=== PATIENT | female | born 1965 | race Caucasian/White ===

== ENCOUNTER 2018-09-28 13:49 | Emergency (ER) | payer MEDICAID ==
[~2018-09-28] VITALS: Ht 152.4 cm; Wt 84.0 kg
[2018-09-28] MEDS ORDERED: ipratropium/albuterol 3ml nebule NEB ONE (15:25)
[2018-09-28 15:36] VITALS: BP 117/70
--- NOTE | 2018-09-28 15:52 | NUR ---
RT at bedside
[2018-09-28] MEDS ORDERED: dexamethasone sod phosphate 10mg/ml inj PO STA (16:07)
[2018-09-28] MEDS ORDERED: PRED20TA PO (16:09)
== END 2018-09-28 16:31 | disposition home or self-care (01) ==
LOC: ER 13:50
DX: J45.909 Unspecified asthma, uncomplicated (principal); Z79.899 Other long term (current) drug therapy; Z87.891 Personal history of nicotine dependence
CPT/HCPCS: 94640; 94760; 99283; J1100

== ENCOUNTER 2020-06-08 09:30 | Outpatient (CLI) | payer MEDICAID ==
[~2020-06-08] VITALS: Ht 152.4 cm; Wt 81.6 kg
[2020-06-08] MEDS ORDERED: FLUT100B3 PO (10:21)
[2020-06-08] MEDS ORDERED: ALBU8.5H8 INH (10:22)
[2020-06-08] MEDS ORDERED: ALBU2.5V12 NEB (10:23)
[2020-06-08] MEDS ORDERED: IBUP-1984 PO (10:24)
[2020-06-08 11:08] LABS: CLARITY,URINE SLIGHTLY CLOUDY (Clear); COLOR,URINE STRAW (Yellow); GLUCOSE, URINE NEGATIVE (Neg); KETONES,URINE NEGATIVE (Neg); LEUKOCYTE ESTERASE ,URINE NEGATIVE (Neg); NITRITES, URINE NEGATIVE (Neg); OCCULT BLOOD,URINE SMALL (Neg); PROTEIN,URINE NEGATIVE (Neg); UROBILINOGEN,URINE 0.2 E.U/dL (0.2-1.0)
[2020-06-08 11:11] LABS: BASOPHILS # (AUTO) 0.1 X10'3 (0-0.2); BASOPHILS % (AUTO) 0.7 % (0-1); EOSINOPHILS # (AUTO) 0.2 X10'3 (0-0.9); EOSINOPHILS % (AUTO) 1.9 % (0-6); LYMPHOCYTES # (AUTO) 1.4 X10'3 (1.1-4.8); LYMPHOCYTES % (AUTO) 17.2 % (21-51); MEAN CORPUSCULAR HEMOGLOBIN 28.3 PG (27.0-31.0); MEAN CORPUSCULAR HGB CONC 33.1 g/dL (33.0-36.5); MEAN CORPUSCULAR VOLUME 85.7 FL (78-98); MEAN PLATELET VOLUME 9.8 FL (7.4-10.4); MONOCYTES # (AUTO) 0.6 X10'3 (0-0.9); MONOCYTES % (AUTO) 7.5 % (2-12); NEUTROPHILS # (AUTO) 5.9 X10'3 (1.8-7.7); NEUTROPHILS % (AUTO) 72.7 % (42-75); PRE OP HEMATOCRIT 43.9 % (35.0-45.0); PRE OP HEMOGLOBIN 14.5 g/dL (12.0-16.0); PRE OP PLATELET COUNT 261 X10'3 (140-440); RED BLOOD COUNT 5.13 X10'6 (4.20-5.60); RED CELL DISTRIBUTION WIDTH 14.2 % (11.5-14.5)
[2020-06-08 11:13] LABS: SQUAMOUS EPITHELIAL CELL,UR MANY /LPF (FEW); UA COLLECTION TYPE CLN CATCH MIDSTREAM
[2020-06-08 11:14] LABS: MUCUS STRANDS MANY /LPF (Neg)
[2020-06-08 11:16] LABS: BACTERIA,URINE FEW /HPF (Neg); RBC,URINE 0-2 /HPF (0-2); WBC,URINE 0-4 /HPF (0-4)
[2020-06-08 11:22] LABS: HCG SERUM QL NEGATIVE
[2020-06-08 11:26] LABS: ALBUMIN 2.3 G/DL (3.4-5.0); ALBUMIN/GLOBULIN RATIO 0.4 (1.1-1.5); ALKALINE PHOSPHATASE 93 IU/L (46-116); BLOOD UREA NITROGEN 16 MG/DL (7-18); BUN/CREATININE RATIO 21.9 (6.6-38.0); CALCIUM 8.7 MG/DL (8.5-10.1); CHLORIDE 105 MMOL/L (99-107); CREATININE 0.73 MG/DL (0.40-0.90); PRE OP ALT 30 U/L (30-65); PRE OP ANION GAP 9 (8-16); PRE OP AST 19 U/L (10-37); PRE OP BILIRUB, TOTAL 0.3 MG/DL (0.0-1.0); PRE OP GLUCOSE 96 MG/DL (70-104); PRE OP SODIUM 142 MMOL/L (135-145); TOTAL CARBON DIOXIDE 27.9 MMOL/L (24-32); TOTAL PROTEIN 7.7 G/DL (6.4-8.2); eGFR 84 ML/MIN
[2020-06-08 11:28] LABS: PRE OP INR < 0.9 INR; PRE OP PARTIAL THROMB. TIME 28 SECONDS (22-32); PRE OP PROTIME 9.6 SECONDS (9.0-12.0)
[2020-06-15] MEDS ORDERED: ringers solution, lacted 1,000 ML IV SCH (05:00)
[2020-06-15] MEDS ORDERED: albuterol 2.5 MG/3 ML nebule NEB ONE (05:30)
[2020-06-15] MEDS ORDERED: famotidine 20mg tablet PO ONE (05:30)
[2020-06-15] MEDS ORDERED: ceFOXitin sod/dextrose 2g/50ml 50 ML IV ONE (05:30)
== END 2020-06-08 23:59 | disposition home or self-care (01) ==
LOC: PRE-OP 09:30 → EDSTATUS 06-15 12:00
PROVIDERS: ATTEND Obstetrics & Gynecology
DX: Z01.812 Encounter for preprocedural laboratory examination (principal); Z20.828 Contact with and (suspected) exposure to other viral communicable diseases
CPT/HCPCS: 36415; 80053; 81001; 84703; 85025; 85610; 85730; 86885; 86900; 86901; 87635; 93005; J0694; J7120

== ENCOUNTER 2020-07-27 05:25 | Day surgery (SDC) | payer MEDICAID ==
[2020-07-20 10:50] LABS: BASOPHILS # (AUTO) 0.1 X10'3 (0-0.2); BASOPHILS % (AUTO) 0.6 % (0-1); EOSINOPHILS # (AUTO) 0.2 X10'3 (0-0.9); EOSINOPHILS % (AUTO) 2.2 % (0-6); LYMPHOCYTES # (AUTO) 1.6 X10'3 (1.1-4.8); LYMPHOCYTES % (AUTO) 16.5 % (21-51); MEAN CORPUSCULAR HEMOGLOBIN 29.2 PG (27.0-31.0); MEAN CORPUSCULAR HGB CONC 33.6 g/dL (33.0-36.5); MEAN CORPUSCULAR VOLUME 86.9 FL (78-98); MEAN PLATELET VOLUME 9.6 FL (7.4-10.4); MONOCYTES # (AUTO) 0.6 X10'3 (0-0.9); MONOCYTES % (AUTO) 6.6 % (2-12); NEUTROPHILS # (AUTO) 7.1 X10'3 (1.8-7.7); NEUTROPHILS % (AUTO) 74.1 % (42-75); PRE OP HEMATOCRIT 41.8 % (35.0-45.0); PRE OP PLATELET COUNT 268 X10'3 (140-440); RED BLOOD COUNT 4.81 X10'6 (4.20-5.60); RED CELL DISTRIBUTION WIDTH 14.5 % (11.5-14.5)
[2020-07-20 10:54] LABS: CLARITY,URINE SLIGHTLY CLOUDY (Clear); COLOR,URINE STRAW (Yellow); GLUCOSE, URINE NEGATIVE (Neg); KETONES,URINE NEGATIVE (Neg); LEUKOCYTE ESTERASE ,URINE NEGATIVE (Neg); NITRITES, URINE NEGATIVE (Neg); OCCULT BLOOD,URINE NEGATIVE (Neg); PH,URINE 7.5 (4.8-8.0); PROTEIN,URINE NEGATIVE (Neg); UROBILINOGEN,URINE 0.2 E.U/dL (0.2-1.0)
[2020-07-20 11:06] LABS: PRE OP INR 0.9 INR; PRE OP PROTIME 9.8 SECONDS (9.0-12.0)
[2020-07-20 11:08] LABS: UA COLLECTION TYPE CLN CATCH MIDSTREAM
[2020-07-20 11:10] LABS: ALBUMIN 3.4 G/DL (3.4-5.0); ALBUMIN/GLOBULIN RATIO 0.9 (1.1-1.5); ALKALINE PHOSPHATASE 83 IU/L (46-116); BLOOD UREA NITROGEN 11 MG/DL (7-18); BUN/CREATININE RATIO 13.9 (6.6-38.0); CHLORIDE 106 MMOL/L (99-107); CREATININE 0.79 MG/DL (0.40-0.90); PRE OP ALT 19 U/L (30-65); PRE OP ANION GAP 8 (8-16); PRE OP AST 17 U/L (10-37); PRE OP BILIRUB, TOTAL 0.2 MG/DL (0.0-1.0); PRE OP GLUCOSE 90 MG/DL (70-104); PRE OP POTASSIUM 4.3 MMOL/L (3.4-5.1); PRE OP SODIUM 140 MMOL/L (135-145); TOTAL CARBON DIOXIDE 26.4 MMOL/L (24-32); TOTAL PROTEIN 7.4 G/DL (6.4-8.2); eGFR 76 ML/MIN
[2020-07-20 11:11] LABS: MUCUS STRANDS MANY /LPF (Neg); SQUAMOUS EPITHELIAL CELL,UR MANY /LPF (FEW)
[2020-07-20 11:12] LABS: BACTERIA,URINE 4+ /HPF (Neg); HYALINE CASTS 0-3 /LPF (NEGATIVE); RBC,URINE 0-2 /HPF (0-2); WBC,URINE NONE SEEN /HPF (0-4)
[2020-07-20 11:23] LABS: HCG SERUM QL NEGATIVE
[~2020-07-27] VITALS: Ht 152.4 cm; Wt 81.6 kg
[2020-07-27] VITALS (22 sets, daily range): BP systolic 122–160; BP diastolic 59–90
[~2020-07-27 05:25] MED LIST: ALBU2.5V12 NEB; ALBU8.5H8 INH; FLUT100B3 PO; IBUP-1984 PO; ringers solution, lacted 1,000 ML IV SCH
[2020-07-27] MEDS ORDERED: ceFAZolin 2gm in dextrose, iso 100 ML IV ONE (05:30)
[2020-07-27] MEDS ORDERED: famotidine 20mg tablet PO ONE (05:30)
[2020-07-27] MEDS ORDERED: LIDOcaine 1% (10mg/ml) 2ml vial ONE (06:03)
[2020-07-27] MEDS ORDERED: BUPIVAcaine/PF 2.5 mg/ml (0.25%) 30ml vial ONE (06:50)
[2020-07-27] MEDS ORDERED: fentaNYL /PF 50mcg/ml 5ml ampule ONE (07:14)
[2020-07-27] MEDS ORDERED: MIDAZolam 5mg/5ml vial ONE (07:14)
[2020-07-27] MEDS ORDERED: rocuronium 10mg/ml inj IV ONE ×2 (07:15→09:07)
[2020-07-27] MEDS ORDERED: LIDOcaine 2% (20mg/ml) 5ml vial ONE (07:15)
[2020-07-27] MEDS ORDERED: dexamethasone sod phosphate 4mg/ml inj. ONE (07:15)
[2020-07-27] MEDS ORDERED: ondansetron/PF 4mg/2ml inj ONE (07:15)
[2020-07-27] MEDS ORDERED: propofol inj 20 ML IV ONE (07:15)
[2020-07-27] MEDS ORDERED: glycopyrrolate 0.2mg/ml inj ONE (07:16)
[2020-07-27] MEDS ORDERED: labetalol 20mg/4ml (5mg/ml) syringe IV PRN (07:50)
[2020-07-27] MEDS ORDERED: morphine 2 MG/ML inj. syringe IV PRN (07:50)
[2020-07-27] MEDS ORDERED: ondansetron/PF 4mg/2ml inj IV PRN (07:50)
[2020-07-27] MEDS ORDERED: hydrALAZINE 20mg/ml inj. IV PRN (07:50)
[2020-07-27] MEDS ORDERED: ringers solution, lacted 1,000 ML IV SCH (07:50)
[2020-07-27] MEDS ORDERED: morphine 4 MG/ML inj SYRINge IV PRN (07:50)
[2020-07-27] MEDS ORDERED: fentaNYL/PF 50MCG/1 ML 2ML syringe IV PRN (07:50)
--- NOTE | 2020-07-27 09:47 | NUR ---
RECEIVED FROM OR VIA [facility] ACCOMPANIED BY ANESTHESIOLOGIST DR MOLINA, REPORT GIVEN. PT VERY SLEEPY BUT AROUSES, NO COMPLAINT OF PAIN AT THIS TIME. LG BANDAID DRESSING X4 TO ABD CDI, ABD SOFT. JOSHUA, VSS, SKIN PINK AND WARM, BRISK CAP REFILL, PPULSES PALPABLE. 20 GAUGE PIV R WRIST PATENT AND RUNNING LR AT 100 ML/HR. RESTING COMFORTABLY.
[2020-07-27] MEDS: fentaNYL/PF 50MCG/1 ML 2ML syringe IV PRN ×2 (10:05→10:12)
[2020-07-27] MEDS ORDERED: ketorolac trometh. 30mg/ml inj. IV ONE (10:40)
--- NOTE | 2020-07-27 13:07 | NUR ---
PT AWAKE AND ALERT, TOLERATING FLUIDS, ABLE TO DRESS SELF, ABLE TO AMBULATE WITH 0 ASSIST, ABLE TO VOID. LG BANDAID DRESSING X4 TO ABD CDI, ABD SOFT. JOSHUA, VSS, SKIN PINK AND WARM, BRISK CAP REFILL, PPULSES PALPABLE. 20 GAUGE PIV R WRIST DCD CATH TIP INTACT. DISCHARGE INSTRUCTIONS GIVEN AND PT VERBALIZED UNDERSTANDING. TRANSPORTED VIA WHEELCHAIR TO FRIEND IN PRIVATE VEHICLE TO HOME.
== END 2020-07-27 13:07 | disposition home or self-care (01) ==
LOC: PAS 05:25
PROVIDERS: ATTEND Obstetrics & Gynecology
DX: R19.09 Other intra-abdominal and pelvic swelling, mass and lump (principal); N84.0 Polyp of corpus uteri; N72 Inflammatory disease of cervix uteri; N83.11 Corpus luteum cyst of right ovary; N83.202 Unspecified ovarian cyst, left side; F32.9 Major depressive disorder, single episode, unspecified; J45.909 Unspecified asthma, uncomplicated; E66.01 Morbid (severe) obesity due to excess calories; Z68.35 Body mass index [BMI] 35.0-35.9, adult; Z98.890 Other specified postprocedural states; Z87.891 Personal history of nicotine dependence; Z88.1 Allergy status to other antibiotic agents; Z79.899 Other long term (current) drug therapy; Z79.01 Long term (current) use of anticoagulants; Z20.828 Contact with and (suspected) exposure to other viral communicable diseases; Z80.41 Family history of malignant neoplasm of ovary
CPT/HCPCS: 36415; 58571; 80053; 81001; 82948; 84703; 85025; 85610; 85730; 86885; 86900; 86901; 87635; C1758; J1100; J1885; J2001; J2250; J2270; J2405; J2704; J3010; J3490; J7120; S2900; A4618; A7000